=== PATIENT | male | born 1990 | race Hispanic/Latino ===

== ENCOUNTER 2020-04-05 18:43 | Emergency (ER) | payer BC ==
[2020-04-05 19:15] LABS: #Eosinphils 0.1 thou/uL (0.0-0.7); #Lymphocytes 2.7 thou/uL (1.20-3.40); #Monocytes 0.4 thou/uL (0.11-0.59); #Neutrophils 3.8 thou/uL (1.40-6.50); %Basophils 0.3 % (0.0-1.0); %Eosinophils 1.5 % (0.0-10.0); %Lymphocytes 38.3 % (21.0-51.0); %Monocytes 5.7 % (0.0-10.0); %Neutrophils 54.3 % (42.0-75.0); Hemoglobin 15.7 g/dL (14.0-18.0); Mean Corpuscular HGB CONC 34.7 g/dL (32.0-36.0); Mean Corpuscular Hemoglobin 32.4 pg (27.0-31.0); Mean Corpuscular Volume 93.5 fL (78.0-98.0); Mean Platelet Volume 8.2 fL (7.4-10.4); Platelet Count 212 thou/uL (130-400); RBC Distribution Width 12.2 % (11.5-14.5); Red Blood Cell (RBC) Count 4.85 mill/uL (4.70-6.10); White Blood Cell (WBC) Count 6.9 thou/uL (4.8-10.8)
[2020-04-05 19:38] LABS: ALT (SGPT) 140 U/L (8-55); AST (SGOT) 72 U/L (5-34); Albumin 4.5 g/dL (3.5-5.0); Alkaline Phosphatase 70 U/L (40-110); Anion Gap 15 mmol/L (10-20); BUN (Urea Nitrogen) 13 mg/dL (8.9-20.6); Calc. Creatinine Clearance 0 mL/min (70-130); Carbon Dioxide 26 mmol/L (22-29); Chloride 105 mmol/L (98-107); Globulin 3.1 g/dL (2.4-3.5); Glucose 108 mg/dL (70-105); Lipase 31 U/L (8-78); Potassium 3.5 mmol/L (3.5-5.1); Protein, Total 7.6 g/dL (6.0-8.3); Sodium 142 mmol/L (136-145)
[2020-04-05 21:48] LABS: Bilirubin Negative (Negative); Blood, Urine Negative (Negative); Clarity Clear (Clear); Glucose, Urine (Dipstick) Normal (Negative); Ketone, Urine Negative (Negative); Leukocyte Negative Leu/uL (Negative); Nitrite Negative (Negative); Protein, Urine (Dipstick) 10 mg/dL (Neg-Trace); Specific Gravity, Urine 1.032 (1.002-1.036)
--- NOTE | 2020-04-05 23:30 | ULT ---
RIGHT UPPER QUADRANT ULTRASOUND: Date: 04/05/2020 PROVIDED CLINICAL HISTORY: Right upper quadrant pain. FINDINGS: The pancreas is largely obscured. The IVC appears unremarkable. The liver demonstrates changes of fat ty infiltration without mass or intrahepatic biliary ductal dilatation evident. Gallbladder demonstra rosette no stones, wall thickening, or pericholecystic fluid. Nonmobile, nonshadowing echogenic focus ass ociated with the gallbladder wall measuring about 5-6 mm, compatible with polyp. The quality internship desc ribes a negative sonographic Padron's sign. The common duct is not dilated. The right kidney demonstr ates no hydronephrosis or mass. IMPRESSION: No evidence for an acute process. Chronic findings as above. POS: MARIA ISABEL
== END 2020-04-06 00:45 | disposition home or self-care (01) ==
LOC: ERS 18:43
DX: R10.11 Right upper quadrant pain (principal)
CPT/HCPCS: 36415; 76705; 80053; 81003; 83690; 85025